=== PATIENT | male | born 1950 | race Caucasian/White ===

== ENCOUNTER → 2020-07-18 07:22 | Outpatient (CLI) | payer OTHER, SELFPAY ==
[2020-07-18 07:48] LABS: Add Manual Diff / Slide Review NO; Basophils Absolute Auto 100 /uL (0-100); Basophils Percent Auto 1.3 % (0-2); Eosinophils Absolute Auto 500 /uL (0-450); Eosinophils Percent Auto 4.7 % (2-4); Hemoglobin 16.7 g/dL (13.5-17.5); Lymphocytes Absolute Auto 2300 /uL (1100-4500); Lymphocytes Percent Auto 23.7 % (25-40); Mean Corpuscular HGB Conc 34.2 % (30-36); Mean Corpuscular Hemoglobin 29.9 PG (26-34); Mean Corpuscular Volume 87.6 fL (80-100); Monocytes Absolute Auto 900 /uL (0-900); Monocytes Percent Auto 9.5 % (3-14); Neutrophils Absolute Auto 5900 /uL (1500-7000); Neutrophils Percent Auto 60.8 % (50-75); Platelet Count 294 X10^3/uL (150-400); Red Blood Cell Count 5.59 X10^6/uL (4.5-5.9); Red Cell Distribution Width 13.4 % (11.6-14.8); White Blood Cell Count 9.6 X10^3/uL (4.5-11.0)
[2020-07-18 08:18] LABS: Alanine Aminotransferase 46 IU/L (<50); Albumin 4.4 g/dL (3.5-5.0); Albumin Globulin Ratio 1.5 (1.0-2.8); Alkaline Phosphatase 61 U/L (38-126); Aspartate Aminotransferase 42 IU/L (17-59); BUN Creatinine Ratio 19.3 (6-22); Bilirubin Total 0.8 mg/dL (0.2-1.3); Blood Urea Nitrogen 23 mg/dL (9-20); Calcium 9.6 mg/dL (8.4-10.2); Carbon Dioxide 29 mmol/L (22-32); Chloride 104 mmol/L (98-107); Cholesterol 186 mg/dL (140-199); Estimated Glomerular Filt Rate > 60.0 mL/min (>60); Glucose 108 mg/dL (80-110); HDL Cholesterol 39 mg/dL (40-60); HEMOLYSIS < 15 (0-50); LDL Cholesterol Calculated 113 mg/dL (<100); Potassium 3.7 mmol/L (3.4-5.1); Sodium 141 mmol/L (137-145); Total Protein 7.4 g/dL (6.3-8.2); Triglycerides 168 mg/dL (35-150)
[2020-07-18 08:48] LABS: Prostate Specific Antigen Scrn 2.77 ng/mL (0.1-4.0)
[2020-07-18 08:49] LABS: TSH w/ Reflex to FT4 6.48 uIU/mL (0.47-4.68)
[2020-07-18 09:19] LABS: Free T4, Direct Thyroxine 1.21 ng/dL (0.78-2.19)
== END ==
PROVIDERS: PCP Family Medicine; Referring Provider Family Medicine; Visit Provider Family Medicine
DX: I10 Essential (primary) hypertension (principal); N20.0 Calculus of kidney; Z12.11 Encounter for screening for malignant neoplasm of colon; Z12.5 Encounter for screening for malignant neoplasm of prostate; Z13.220 Encounter for screening for lipoid disorders; Z13.29 Encounter for screening for other suspected endocrine disorder
CPT/HCPCS: 36415; 80053; 80061; 84439; 84443; 85025; G0103

== ENCOUNTER → 2020-09-15 08:42 | Outpatient (CLI) | payer OTHER, SELFPAY ==
[2020-09-15 10:45] LABS: Free T3, Triiodothyronine Free 4.65 pg/mL (2.77-5.27); Free T4, Direct Thyroxine 1.56 ng/dL (0.78-2.19)
== END ==
PROVIDERS: PCP Family Medicine; Referring Provider Family Medicine; Visit Provider Family Medicine
DX: E03.9 Hypothyroidism, unspecified (principal)
CPT/HCPCS: 36415; 84439; 84443; 84481

== ENCOUNTER 2020-12-01 08:30 | Emergency (ER) | payer OTHER, SELFPAY ==
[2020-12-01 08:43] VITALS: BP 182/110; PULSE 61; RESP 16; TEMP 36.8; O2SAT 98; BMI 23.7
--- NOTE | 2020-12-01 08:51 | ED.EXTPRO ---
HPI - Extremity Problem General Chief complaint: Extremity Problem,Nontraumatic Stated complaint: left shoulder pain Time Seen by Provider: 12/01/20 08:49 Source: patient Mode of arrival: Ambulatory Limitations: no limitations History of Present Illness HPI Narrative: This is an 70-year-old male comes emergency department with complaint of left shoulder pain. Patient states he has been told he has tendinitis in the past. He has had 3 episodes. Patient does not appreciate any recent repetitive activity or injuries. He has had similar symptoms since 2018. He states that meloxicam is been helpful. For his 1st episode he took 1 tablet and resolved his symptoms for his 2nd episode it took about 5 days. He has no other followed up with Orthopedic surgery for his pain. He is in the process of moving. He states he has also been throwing a baseball with his son recently but he is right-hand dominant. He does take medication for hypertension. He denies any prior cardiac history. Denies any medications for dyslipidemia or anticoagulant. He denies any allergies to medications. He is unaware of any renal dysfunction. Patient denies any neck, back or chest pain. No shortness of breath. No numbness, tingling or weakness. Denies any other GI symptoms. Patient does live locally and is only moving a short distance today. Related Data Previous Rx's Medication Instructions Recorded lisinopril 40 mg tablet 40 mg PO DAILY #90 tab 07/20/20 amlodipine 10 mg tablet 10 mg PO DAILY #90 tab 07/24/20 chlorthalidone 25 mg tablet 25 mg PO DAILY #30 tab 07/25/20 levothyroxine 50 mcg tablet See Rx Instructions .ROUTE 11/27/20 .COMPLEX #60 tab meloxicam 7.5 mg PO BID PRN #20 tab 12/01/20 Allergies Allergy/AdvReac Type Severity Reaction Status Date / Time No Known Drug Allergies Allergy Verified 12/01/20 08:42 Review of Systems Review of Systems ROS Unobtainable: All systems reviewed & are unremarkable except as noted in HPI and below Patient History Medical History Chronic back pain (~1994) History of melanoma HTN (hypertension) (~1999) Hyperlipidemia, mixed Hypothyroidism (acquired) Kidney stones (~1997) Surgical History Anesthesia H/O hernia repair (~2005) Melanoma (~2019) Family History (Updated 07/24/20 @ 18:59 by Stephanie Wiggins) Father Cancer Hairy cell leukemia Grandfather Cancer Social History Smoking Status: Never smoker Smoking Status: Never smoker alcohol intake frequency: a few times a month Substance Use Type: does not use Exam Narrative Exam Narrative: GENERAL: Alert and oriented x three, well-nourished male in mild distress. HEENT: Head normocephalic, atraumatic, EOMI, pupils reactive, face symmetric, moist mucous membranes NECK: Supple, full range of motion, no cervical vertebral tenderness. CARDIOVASCULAR: Regular rate and rhythm without murmurs, rubs or gallops. RESPIRATORY: Breath sounds equal bilaterally, no wheezes rales or rhonchi. ABDOMEN: Soft, nontender. Normoactive bowel sounds all 4 quadrants. No guarding or rebound, rigidity, no mass EXTREMITIES: Normal range of motion the patient does have discomfort with extension and external, internal rotation, no clubbing or edema. Neurovascularly intact. Muscle strength is 5/5 with industrial manufacturing technician equal bilaterally. Patient has sensation in bilateral upper extremities with 2+ radial pulses bilaterally. Patient to to does not have any warmth, erythema or skin changes. I am not able to reproduce his discomfort but he verbalizes that over the AC joint is location of his pain. NEUROLOGICAL: Cranial nerves II through XII grossly intact. Moving all extremities SKIN: Warm, dry, no petechiae, no rashes or lesions. Initial Vital Signs Initial Vital Signs: Vital Signs Temperature 98.2 F 12/01/20 08:43 Pulse Rate 61 12/01/20 08:43 Respiratory Rate 16 12/01/20 08:43 Blood Pressure 182/110 H 12/01/20 08:43 Pulse Oximetry 98 12/01/20 08:43 Course Orders Ordered: Discontinued Medications Meloxicam (Meloxicam 7.5 Mg Tablet) 7.5 mg PO NOW ONE Stop: 12/01/20 09:03 Last Admin: 12/01/20 09:14 Dose: 7.5 mg Documented by: APRIL Vital Signs Vital signs: Vital Signs - 8 hr 12/01/20 08:43 Temperature 98.2 F Pulse Rate 61 Respiratory Rate 16 Blood Pressure 182/110 H Pulse Oximetry 98 MDM - Extremity (Nontraumatic) MDM Narrative Medical decision making narrative: This is a 70-year-old male comes emergency department with recurrent left shoulder pain that is localized to the AC joint. Patient states he has been told he had tendinitis but has not had further workup. Patient's physical exam is consistent with musculoskeletal origin. Discussed with patient and both defer any x-ray imaging as this is a chronic condition with no new findings. We did discuss new short course of NSAIDs, he can add Tylenol combination and given a referral for Orthopedic surgery for further workup and treatment. Discharge Plan Departure Patient Disposition: Home Clinical Impression: Left shoulder pain Instructions: DI for Shoulder Pain Activity Restrictions/Additional Instructions: Follow up with Orthopedic surgery. Call for an appointment. You may take Tylenol up to a 1000 mg every 8 hours as needed for pain. You may take the meloxicam every 12 hours as needed for pain. Do not take other NSAIDs such as Aleve, naproxen or ibuprofen with meloxicam. Prescription sent to [facility] in [place]. Please return for new weakness, numbness, loss of sensation, fevers, new chest pain, shortness of breath, lightheadedness or passing, new swelling, redness or other skin changes or other new or concerning symptoms. Prescriptions: New meloxicam 7.5 mg tablet 7.5 mg PO BID PRN (Reason: pain) Qty: 20 RF: 0 No Action lisinopril 40 mg tablet 40 mg PO DAILY Qty: 90 RF: 0 amlodipine 10 mg tablet 10 mg PO DAILY Qty: 90 RF: 3 levothyroxine 50 mcg tablet See Rx Instructions .ROUTE .COMPLEX Qty: 60 RF: 5 chlorthalidone 25 mg tablet 25 mg PO DAILY Qty: 30 RF: 5 Referrals: Isaiah Urban DO [Primary Care Provider] - Stand Alone Forms: Work Release Note
[2020-12-01] MEDS: MELOXICAM 7.5 MG TABLET PO (09:14)
[2020-12-01 09:28] VITALS: BP 148/84; PULSE 77; RESP 16; O2SAT 98
== END 2020-12-01 09:28 | disposition home or self-care (01) ==
PROVIDERS: Emergency Provider Emergency Medicine; PCP Family Medicine
DX: M25.512 Pain in left shoulder (principal)
CPT/HCPCS: 99283

== ENCOUNTER 2021-06-25 13:09 | Inpatient (IN) | payer MEDICARE, SELFPAY ==
[2021-06-25] VITALS (21 sets, daily range): BP systolic 141–161; BP diastolic 72–89; PULSE 60–92; RESP 10–23; TEMP 36.4–37.4; O2SAT 89–94; BMI 25.7
--- NOTE | 2021-06-25 13:21 | DI.RAD.S_ITS ---
PROCEDURE: XR CHEST 1V INDICATIONS: shortness of breath TECHNIQUE: One view of the chest was acquired. COMPARISON: None. FINDINGS: Surgical changes and devices: None. Lungs and pleura: Low lung volumes are noted. This causes a crowded appearance to the lung markings and limits evaluation. Bilateral patchy interstitial type infiltrates are seen. On this semiupright portable chest examination, no large pneumothorax or large pleural effusions are seen. At least 1 calcified granuloma can be seen. Mediastinum: Mediastinal contours appear normal. Heart size is normal. Bones and chest wall: No suspicious bony lesions. Age-appropriate bony degenerative changes are seen. Overlying soft tissues appear unremarkable. IMPRESSION: High suspicion for COVID pneumonia. Dictated by: Mark Napoles M.D. on 06/25/2021 at 12:59 Approved by: Mark Napoles M.D. on 06/25/2021 at 13:00
[2021-06-25 14:05] LABS: COVID19 - ADMIT (NP swab/PCR) POSITIVE (Negative)
[2021-06-25 14:08] LABS: Add Manual Diff / Slide Review NO; Basophils Absolute Auto 0 /uL (0-100); Basophils Percent Auto 0.5 % (0-2); Eosinophils Absolute Auto 0 /uL (0-450); Eosinophils Percent Auto 0.1 % (2-4); Hematocrit 47.6 % (41-53); Hemoglobin 16.7 g/dL (13.5-17.5); Lymphocytes Absolute Auto 800 /uL (1100-4500); Lymphocytes Percent Auto 15.1 % (25-40); Mean Corpuscular HGB Conc 35.2 % (30-36); Mean Corpuscular Hemoglobin 29.9 PG (26-34); Mean Corpuscular Volume 84.9 fL (80-100); Monocytes Absolute Auto 1000 /uL (0-900); Monocytes Percent Auto 18.7 % (3-14); Neutrophils Absolute Auto 3500 /uL (1500-7000); Neutrophils Percent Auto 65.6 % (50-75); Platelet Count 153 X10^3/uL (150-400); White Blood Cell Count 5.4 X10^3/uL (4.5-11.0)
[2021-06-25 14:19] LABS: Alanine Aminotransferase 44 IU/L (<50); Albumin 3.5 g/dL (3.5-5.0); Albumin Globulin Ratio 1.3 (1.0-2.8); Alkaline Phosphatase 46 U/L (38-126); Aspartate Aminotransferase 66 IU/L (17-59); BUN Creatinine Ratio 18.5 (6-22); Blood Urea Nitrogen 24 mg/dL (9-20); Calcium 8.7 mg/dL (8.4-10.2); Carbon Dioxide 29 mmol/L (22-32); Chloride 96 mmol/L (98-107); Estimated Glomerular Filt Rate 54.9 mL/min (>60); Globulin 2.7 g/dL (1.7-4.1); Glucose 104 mg/dL (80-110); HEMOLYSIS 23 (0-50); Potassium 3.8 mmol/L (3.4-5.1); Sodium 133 mmol/L (137-145); Total Protein 6.2 g/dL (6.3-8.2)
--- NOTE | 2021-06-25 14:25 | ED.SOB ---
HPI - SOB/Dyspnea <Celeste Luu PA-C - Last Filed: 06/25/21 19:32> General Chief Complaint: Shortness of Breath/Dyspnea Stated Complaint: weakness, short of breath, loss of balance Time Seen by Provider: 06/25/21 13:20 Source: patient Mode of arrival: Ambulatory History of Present Illness HPI Narrative: 70-year-old male with past medical history hypertension presents to the ED with 9 days of shortness of breath. Patient states that his symptoms started 9 days ago with fever, chills, worsening shortness of breath. Patient also endorses some cough, anorexia, nausea Patient states that it is hard for him to get a full breath. Patient is unvaccinated for COVID-19. Patient states that his and son were sick with a GI bug that cause some diarrhea to 2 weeks ago, son was tested negative for COVID, was not tested. He endorses that they are both recovered now. Patient denies chest pain, vomiting, abdominal pain, dysuria, lightheadedness, dizziness, syncope. Related Data Previous Rx's Medication Instructions Recorded chlorthalidone 25 mg tablet 25 mg PO DAILY #30 tab 07/25/20 meloxicam 7.5 mg tablet 7.5 mg PO BID PRN #20 tab 12/01/20 amlodipine 10 mg tablet 10 mg PO DAILY #90 tab 12/04/20 levothyroxine 50 mcg tablet See Rx Instructions .ROUTE 12/04/20 .COMPLEX #60 tab lisinopril 40 mg tablet 40 mg PO DAILY #90 tab 12/04/20 Allergies Allergy/AdvReac Type Severity Reaction Status Date / Time No Known Drug Allergies Allergy Verified 04/17/21 09:35 Review of Systems <Celeste Luu PA-C - Last Filed: 06/25/21 19:32> Constitutional Constitutional: Reports chills, Reports fatigue, Reports fever(s), Denies frequent falls, Denies lethargy and Reports weakness Eyes Eyes: Denies change in vision, Denies eye discharge, Denies irritation and Denies loss of vision ENT Ears, Nose, Mouth, and Throat: Denies change in voice, Denies dizziness, Denies neck pain, Denies sore throat and Denies throat swelling Cardiovascular Cardiovascular: Denies chest pain, Denies irregular heart rhythm, Denies lightheadedness, Denies palpitations, Reports dyspnea, Reports dyspnea on exertion and Denies orthopnea Respiratory Respiratory: Reports cough, Reports dyspnea, Reports dyspnea on exertion and Denies wheezing Gastrointestinal Gastrointestinal: Denies abdominal pain, Denies change in bowel habits, Denies diarrhea, Reports nausea and Denies vomiting Musculoskeletal Musculoskeletal: Denies neck pain and Denies numbness Integumentary/Breasts Skin/Breast: Denies pruritus, Denies erythema, Denies rash and Denies wounds Neurologic Neurologic: Denies behavioral changes, Denies confusion, Denies dizziness, Denies frequent falls, Denies loss of vision, Denies numbness and Reports weakness Psychiatric Psychiatric: Denies anxiety, Denies behavioral changes, Denies confusion, Denies depression, Denies homicidal ideation and Denies suicidal ideation Endocrine Endocrine: Reports fatigue, Denies flushing and Denies palpitations Hematologic/Lymphatic Hematologic/Lymphatic: Denies easy bruising Allergic/Immunologic Allergic/Immunologic: Denies urticaria, Denies throat swelling and Denies wheezing Patient History <Celeste Luu PA-C - Last Filed: 06/25/21 19:32> Medical History Acute pain of right knee Chronic back pain (~1994) History of melanoma HTN (hypertension) (~1999) Hyperlipidemia, mixed Hypothyroidism (acquired) Kidney stones (~1997) Somatic dysfunction of lower extremity Vaccination hesitancy by patient Surgical History Anesthesia H/O hernia repair (~2005) Melanoma (~2018) Family History Father Cancer Hairy cell leukemia Grandfather Cancer Social History Smoking Status: Never smoker Smoking Status: Never smoker alcohol intake frequency: a few times a month Substance Use Type: does not use Exam <Celeste Luu PA-C - Last Filed: 06/25/21 19:32> Initial Vital Signs Initial Vital Signs: Vital Signs Temperature 99.4 F 06/25/21 13:13 Pulse Rate 92 H 06/25/21 13:13 Respiratory Rate 18 06/25/21 13:13 Blood Pressure 141/76 H 06/25/21 13:13 Pulse Oximetry 90 L 06/25/21 13:13 Const General: cooperative [facility] Head: normocephalic and atraumatic Ears: external ears normal and TM's normal bilaterally Nose: external nose normal and No nasal discharge Face and sinus: sinuses nontender, face symmetric, no sinus tenderness and No dry mucous membranes Mouth: oral mucosae normal and moist mucous membranes Teeth and gingiva: dentition normal Throat: tonsils normal and uvula midline Eyes General: appearance normal, both eyes and all related structures Eyelids: eyelids normal Conjunctivae: conjunctivae normal Sclera: sclerae normal Pupils: PERRL EOM: EOM intact bilaterally Neck Neck: normal visual inspection, trachea midline, No lymphadenopathy, No midline deformity and No JVD Lymphatic: No lymphedema Chest Chest: normal inspection of the chest Resp Effort & Inspection: normal respiratory effort, able to speak in complete sentences, no respiratory distress and no use of accessory muscles Auscultation: clear to auscultation bilaterally Other: Patient is saturating to 90 % on room air. Able to speak in full sentences. Crackles auscultated in left lower lung regions. Patient moving air in an out with minimal effort. Cardio Rate: regular rate Rhythm: regular rhythm Heart Sounds: no click, no gallops, no murmurs and no rubs Pulses: normal peripheral pulses GI Inspection: non-distended Palpation: soft, no hepatosplenomegaly, No guarding, No pulsatile mass and No tender Auscultation: normal bowel sounds Back/Spine/Pelvis Back: No CVA tenderness Cervical Spine: cervical ROM normal and No pain with cervical ROM Thoracic/Lumbar Spine: thoracic and lumbar spine normal to inspection Skin General: no rashes or lesions noted, No jaundice and No petechiae Neuro General: patient alert, patient oriented x3, gait normal and no focal motor deficits Speech: speech normal Extrem General: full ROM, no clubbing, cyanosis or edema, no pedal edema and no calf tenderness Psych Appearance: well kempt Mental Status: mental status grossly normal Attitude: cooperative Thought Content: normal and suicidality Judgment: judgment good <Juve Winters MD - Last Filed: 06/25/21 19:36> Initial Vital Signs Initial Vital Signs: Vital Signs Temperature 99.4 F 06/25/21 13:13 Pulse Rate 92 H 06/25/21 13:13 Respiratory Rate 18 06/25/21 13:13 Blood Pressure 141/76 H 06/25/21 13:13 Pulse Oximetry 90 L 06/25/21 13:13 Course <Celeste Luu PA-C - Last Filed: 06/25/21 19:32> Course Course Narrative: Patient is COVID positive. Chest x-ray shows COVID pneumonia. Patient saturating in the mid to high 90s on 3 L of oxygen. Patient is being started on remdesivir, low-dose dexamethasone. Tylenol for fever. ABG obtained, normal. Dimer elevated, CT PE done, CT PE negative for pulmonary embolism. CT shows evidence of COVID pneumonia. Hospitalist Dr. Jung consulted, patient accepted as inpatient. Admitted to inpatient. Orders Ordered: ED Orders 06/25/21 13:21 XR chest 1V Stat EKG-12 Lead Stat Measure peak expiratory flow ONCE RT Consult Eval and Treat Now 06/25/21 13:23 COVID19 - ADMIT ([employer] swab/PCR) Stat 06/25/21 13:45 Complete Blood Count AUTO DIFF Stat Comprehensive Metabolic Panel Stat D Dimer Stat Ferritin Stat Lactate (Lactic Acid) Stat Lactate Dehydrogenase Stat NT-proBNP (BNP-Adult 18+) Stat Procalcitonin Stat Troponin I Stat 06/25/21 14:50 Blood Culture Stat 06/25/21 14:52 CT angio chest PE protocol Stat 06/25/21 15:20 ABG [Arterial Blood Gas] Stat Acetaminophen (Acetaminophen 325 Mg Tablet) 650 mg PO Q6HR PRN PRN Reason: Fever/Mild Pain (1-3) Enoxaparin Sodium (Enoxaparin 40 Mg/0.4 Ml Syringe) 40 mg SUBCUT DAILY DANA Ondansetron HCl (Ondansetron 4 Mg/2 Ml Inj) 4 mg IV Q8HR PRN PRN Reason: Nausea And Vomiting Discontinued Medications Acetaminophen (Acetaminophen 325 Mg Tablet) 975 mg PO NOW ONE Stop: 06/25/21 14:36 Last Admin: 06/25/21 14:49 Dose: 975 mg Documented by: NAY Dexamethasone (Dexamethasone 10 Mg/Ml Vial) 6 mg IV NOW ONE Stop: 06/25/21 14:26 Last Admin: 06/25/21 14:48 Dose: 6 mg Documented by: NAY Remdesivir 200 mg/ Sodium (Chloride) 250 mls @ 250 mls/hr IV NOW ONE Stop: 06/25/21 15:21 Last Infusion: 06/25/21 17:19 Dose: 0 mls/hr Documented by: Admin: 06/25/21 14:49 Dose: 250 mls/hr Documented by: NAY Sodium Chloride (Normal Saline 0.9%) 1,000 mls @ 1,000 mls/hr IV BOLUS ONE Stop: 06/25/21 15:37 Last Infusion: 06/25/21 17:19 Dose: 0 mls/hr Documented by: Admin: 06/25/21 14:49 Dose: 1,000 mls/hr Documented by: NAY Vital Signs Vital signs: Vital Signs - 8 hr 06/25/21 13:13 06/25/21 13:49 06/25/21 13:51 Temperature 99.4 F Pulse Rate 92 H 87 84 Respiratory Rate 18 Blood Pressure 141/76 H 160/86 H Pulse Oximetry 90 L 89 L 89 L 06/25/21 13:59 06/25/21 14:00 06/25/21 14:15 Temperature Pulse Rate 85 83 84 Respiratory Rate 17 23 13 Blood Pressure 161/89 H Pulse Oximetry 93 93 94 06/25/21 14:30 06/25/21 14:45 06/25/21 15:00 Temperature Pulse Rate 83 81 82 Respiratory Rate 17 15 13 Blood Pressure 145/72 H Pulse Oximetry 94 94 94 06/25/21 15:01 06/25/21 15:15 06/25/21 15:30 Temperature Pulse Rate 80 82 77 Respiratory Rate 16 13 10 L Blood Pressure 158/80 H 145/82 H Pulse Oximetry 93 93 92 06/25/21 15:51 06/25/21 16:00 06/25/21 16:15 Temperature Pulse Rate 78 74 72 Respiratory Rate 16 18 20 Blood Pressure Pulse Oximetry 94 93 93 <Juve Winters MD - Last Filed: 06/25/21 19:36> Orders Ordered: ED Orders 06/25/21 13:21 XR chest 1V Stat EKG-12 Lead Stat Measure peak expiratory flow ONCE RT Consult Eval and Treat Now 06/25/21 13:23 COVID19 - ADMIT ([employer] swab/PCR) Stat 06/25/21 13:45 Complete Blood Count AUTO DIFF Stat Comprehensive Metabolic Panel Stat D Dimer Stat Ferritin Stat Lactate (Lactic Acid) Stat Lactate Dehydrogenase Stat NT-proBNP (BNP-Adult 18+) Stat Procalcitonin Stat Troponin I Stat 06/25/21 14:50 Blood Culture Stat 06/25/21 14:52 CT angio chest PE protocol Stat 06/25/21 15:20 ABG [Arterial Blood Gas] Stat Acetaminophen (Acetaminophen 325 Mg Tablet) 650 mg PO Q6HR PRN PRN Reason: Fever/Mild Pain (1-3) Enoxaparin Sodium (Enoxaparin 40 Mg/0.4 Ml Syringe) 40 mg SUBCUT DAILY DANA Ondansetron HCl (Ondansetron 4 Mg/2 Ml Inj) 4 mg IV Q8HR PRN PRN Reason: Nausea And Vomiting Discontinued Medications Acetaminophen (Acetaminophen 325 Mg Tablet) 975 mg PO NOW ONE Stop: 06/25/21 14:36 Last Admin: 06/25/21 14:49 Dose: 975 mg Documented by: NAY Dexamethasone (Dexamethasone 10 Mg/Ml Vial) 6 mg IV NOW ONE Stop: 06/25/21 14:26 Last Admin: 06/25/21 14:48 Dose: 6 mg Documented by: NAY Remdesivir 200 mg/ Sodium (Chloride) 250 mls @ 250 mls/hr IV NOW ONE Stop: 06/25/21 15:21 Last Infusion: 06/25/21 17:19 Dose: 0 mls/hr Documented by: Admin: 06/25/21 14:49 Dose: 250 mls/hr Documented by: NAY Sodium Chloride (Normal Saline 0.9%) 1,000 mls @ 1,000 mls/hr IV BOLUS ONE Stop: 06/25/21 15:37 Last Infusion: 06/25/21 17:19 Dose: 0 mls/hr Documented by: Admin: 06/25/21 14:49 Dose: 1,000 mls/hr Documented by: NAY Vital Signs Vital signs: Vital Signs - 8 hr 06/25/21 13:13 06/25/21 13:49 06/25/21 13:51 Temperature 99.4 F Pulse Rate 92 H 87 84 Respiratory Rate 18 Blood Pressure 141/76 H 160/86 H Pulse Oximetry 90 L 89 L 89 L 06/25/21 13:59 06/25/21 14:00 06/25/21 14:15 Temperature Pulse Rate 85 83 84 Respiratory Rate 17 23 13 Blood Pressure 161/89 H Pulse Oximetry 93 93 94 06/25/21 14:30 06/25/21 14:45 06/25/21 15:00 Temperature Pulse Rate 83 81 82 Respiratory Rate 17 15 13 Blood Pressure 145/72 H Pulse Oximetry 94 94 94 06/25/21 15:01 06/25/21 15:15 06/25/21 15:30 Temperature Pulse Rate 80 82 77 Respiratory Rate 16 13 10 L Blood Pressure 158/80 H 145/82 H Pulse Oximetry 93 93 92 06/25/21 15:51 06/25/21 16:00 06/25/21 16:15 Temperature Pulse Rate 78 74 72 Respiratory Rate 16 18 20 Blood Pressure Pulse Oximetry 94 93 93 MDM - SOB/Dyspnea <Celeste Luu PA-C - Last Filed: 06/25/21 19:32> Lab Data Result diagrams: 06/25/21 13:45 06/25/21 13:45 Labs: Lab Results 06/25/21 06/25/21 06/25/21 Range/Units 13:23 13:45 13:45 WBC 5.4 (4.5-11.0) X10^3/uL RBC 5.60 (4.5-5.9) X10^6/uL Hgb 16.7 (13.5-17.5) g/dL Hct 47.6 (41-53) % MCV 84.9 (80-100) fL MCH 29.9 (26-34) PG MCHC 35.2 (30-36) % RDW 13.0 (11.6-14.8) % Plt Count 153 (150-400) X10^3/uL Neut % (Auto) 65.6 (50-75) % Lymph % (Auto) 15.1 L (25-40) % [place] % (Auto) 18.7 H (3-14) % Eos % (Auto) 0.1 L (2-4) % Baso % (Auto) 0.5 (0-2) % Neut # (Auto) 3500 (5189-7814) /uL Lymph # (Auto) 800 L (6279-8053) /uL [place] # (Auto) 1000 H (0-900) /uL Eos # (Auto) 0 (0-450) /uL Baso # (Auto) 0 (0-100) /uL D-Dimer (<230) ng/mL ABG pH (7.35-7.45) ABG pCO2 (35-45) mmHg ABG pO2 (80-100) mmHg ABG HCO3 (22-26) mmol/L ABG Total CO2 (21-31) mmol/L ABG O2 Saturation (95-100) % ABG Base Excess (-2-2) mmol/L FiO2 Sodium 133 L (137-145) mmol/L Potassium 3.8 (3.4-5.1) mmol/L Chloride 96 L (98-107) mmol/L Carbon Dioxide 29 (22-32) mmol/L BUN 24 H (9-20) mg/dL Creatinine 1.30 H (0.66-1.25) mg/dL Estimated GFR 54.9 L (>60) mL/min BUN/Creatinine Ratio 18.5 (6-22) Glucose 104 (80-110) mg/dL Lactate (0.7-2.1) mmol/L Calcium 8.7 (8.4-10.2) mg/dL Ferritin (18-464) ng/mL Total Bilirubin 1.0 (0.2-1.3) mg/dL AST 66 H (17-59) IU/L ALT 44 (<50) IU/L Alkaline Phosphatase 46 (38-126) U/L Lactate Dehydrogenase (313-618) U/L Troponin I (0.01-0.034) ng/mL NT-Pro-B Natriuret Pep (<125) pg/mL Total Protein 6.2 L (6.3-8.2) g/dL Albumin 3.5 (3.5-5.0) g/dL Globulin 2.7 (1.7-4.1) g/dL Albumin/Globulin Ratio 1.3 (1.0-2.8) Procalcitonin (<0.5) ng/mL SARS-CoV-2 (PCR) Positive H (Negative) 06/25/21 06/25/21 06/25/21 Range/Units 13:45 13:45 13:45 WBC (4.5-11.0) X10^3/uL RBC (4.5-5.9) X10^6/uL Hgb (13.5-17.5) g/dL Hct (41-53) % MCV (80-100) fL MCH (26-34) PG MCHC (30-36) % RDW (11.6-14.8) % Plt Count (150-400) X10^3/uL Neut % (Auto) (50-75) % Lymph % (Auto) (25-40) % [place] % (Auto) (3-14) % Eos % (Auto) (2-4) % Baso % (Auto) (0-2) % Neut # (Auto) (0108-6549) /uL Lymph # (Auto) (8844-3073) /uL [place] # (Auto) (0-900) /uL Eos # (Auto) (0-450) /uL Baso # (Auto) (0-100) /uL D-Dimer 571 H (<230) ng/mL ABG pH (7.35-7.45) ABG pCO2 (35-45) mmHg ABG pO2 (80-100) mmHg ABG HCO3 (22-26) mmol/L ABG Total CO2 (21-31) mmol/L ABG O2 Saturation (95-100) % ABG Base Excess (-2-2) mmol/L FiO2 Sodium (137-145) mmol/L Potassium (3.4-5.1) mmol/L Chloride (98-107) mmol/L Carbon Dioxide (22-32) mmol/L BUN (9-20) mg/dL Creatinine (0.66-1.25) mg/dL Estimated GFR (>60) mL/min BUN/Creatinine Ratio (6-22) Glucose (80-110) mg/dL Lactate 1.0 (0.7-2.1) mmol/L Calcium (8.4-10.2) mg/dL Ferritin (18-464) ng/mL Total Bilirubin (0.2-1.3) mg/dL AST (17-59) IU/L ALT (<50) IU/L Alkaline Phosphatase (38-126) U/L Lactate Dehydrogenase (313-618) U/L Troponin I 0.028 (0.01-0.034) ng/mL NT-Pro-B Natriuret Pep 191 H (<125) pg/mL Total Protein (6.3-8.2) g/dL Albumin (3.5-5.0) g/dL Globulin (1.7-4.1) g/dL Albumin/Globulin Ratio (1.0-2.8) Procalcitonin (<0.5) ng/mL SARS-CoV-2 (PCR) (Negative) 06/25/21 06/25/21 06/25/21 Range/Units 13:45 13:45 15:20 WBC (4.5-11.0) X10^3/uL RBC (4.5-5.9) X10^6/uL Hgb (13.5-17.5) g/dL Hct (41-53) % MCV (80-100) fL MCH (26-34) PG MCHC (30-36) % RDW (11.6-14.8) % Plt Count (150-400) X10^3/uL Neut % (Auto) (50-75) % Lymph % (Auto) (25-40) % [place] % (Auto) (3-14) % Eos % (Auto) (2-4) % Baso % (Auto) (0-2) % Neut # (Auto) (9130-0973) /uL Lymph # (Auto) (5158-6845) /uL [place] # (Auto) (0-900) /uL Eos # (Auto) (0-450) /uL Baso # (Auto) (0-100) /uL D-Dimer (<230) ng/mL ABG pH 7.51 H (7.35-7.45) ABG pCO2 32.4 L (35-45) mmHg ABG pO2 74 L (80-100) mmHg ABG HCO3 26 (22-26) mmol/L ABG Total CO2 27 (21-31) mmol/L ABG O2 Saturation 96 (95-100) % ABG Base Excess 3.0 H (-2-2) mmol/L FiO2 32 Sodium (137-145) mmol/L Potassium (3.4-5.1) mmol/L Chloride (98-107) mmol/L Carbon Dioxide (22-32) mmol/L BUN (9-20) mg/dL Creatinine (0.66-1.25) mg/dL Estimated GFR (>60) mL/min BUN/Creatinine Ratio (6-22) Glucose (80-110) mg/dL Lactate (0.7-2.1) mmol/L Calcium (8.4-10.2) mg/dL Ferritin 946 H (18-464) ng/mL Total Bilirubin (0.2-1.3) mg/dL AST (17-59) IU/L ALT (<50) IU/L Alkaline Phosphatase (38-126) U/L Lactate Dehydrogenase 1142 H (313-618) U/L Troponin I (0.01-0.034) ng/mL NT-Pro-B Natriuret Pep (<125) pg/mL Total Protein (6.3-8.2) g/dL Albumin (3.5-5.0) g/dL Globulin (1.7-4.1) g/dL Albumin/Globulin Ratio (1.0-2.8) Procalcitonin 0.15 (<0.5) ng/mL SARS-CoV-2 (PCR) (Negative) MDM Narrative Medical decision making narrative: 70-year-old male with past medical history hypertension presents to the ED with 9 days of shortness of breath. Concern for COVID-19 infection versus pneumonia versus URI versus CHF versus ACS versus PE. Will order labs, troponin, BNP, chest x-ray, EKG, COVID-19 test, D-dimer. Will put patient on 3 L of oxygen via nasal cannula. Will reassess. <Juve Winters MD - Last Filed: 06/25/21 19:36> Lab Data Labs: Lab Results 06/25/21 06/25/21 06/25/21 Range/Units 13:23 13:45 13:45 WBC 5.4 (4.5-11.0) X10^3/uL RBC 5.60 (4.5-5.9) X10^6/uL Hgb 16.7 (13.5-17.5) g/dL Hct 47.6 (41-53) % MCV 84.9 (80-100) fL MCH 29.9 (26-34) PG MCHC 35.2 (30-36) % RDW 13.0 (11.6-14.8) % Plt Count 153 (150-400) X10^3/uL Neut % (Auto) 65.6 (50-75) % Lymph % (Auto) 15.1 L (25-40) % [place] % (Auto) 18.7 H (3-14) % Eos % (Auto) 0.1 L (2-4) % Baso % (Auto) 0.5 (0-2) % Neut # (Auto) 3500 (1298-0546) /uL Lymph # (Auto) 800 L (2747-2631) /uL [place] # (Auto) 1000 H (0-900) /uL Eos # (Auto) 0 (0-450) /uL Baso # (Auto) 0 (0-100) /uL D-Dimer (<230) ng/mL ABG pH (7.35-7.45) ABG pCO2 (35-45) mmHg ABG pO2 (80-100) mmHg ABG HCO3 (22-26) mmol/L ABG Total CO2 (21-31) mmol/L ABG O2 Saturation (95-100) % ABG Base Excess (-2-2) mmol/L FiO2 Sodium 133 L (137-145) mmol/L Potassium 3.8 (3.4-5.1) mmol/L Chloride 96 L (98-107) mmol/L Carbon Dioxide 29 (22-32) mmol/L BUN 24 H (9-20) mg/dL Creatinine 1.30 H (0.66-1.25) mg/dL Estimated GFR 54.9 L (>60) mL/min BUN/Creatinine Ratio 18.5 (6-22) Glucose 104 (80-110) mg/dL Lactate (0.7-2.1) mmol/L Calcium 8.7 (8.4-10.2) mg/dL Ferritin (18-464) ng/mL Total Bilirubin 1.0 (0.2-1.3) mg/dL AST 66 H (17-59) IU/L ALT 44 (<50) IU/L Alkaline Phosphatase 46 (38-126) U/L Lactate Dehydrogenase (313-618) U/L Troponin I (0.01-0.034) ng/mL NT-Pro-B Natriuret Pep (<125) pg/mL Total Protein 6.2 L (6.3-8.2) g/dL Albumin 3.5 (3.5-5.0) g/dL Globulin 2.7 (1.7-4.1) g/dL Albumin/Globulin Ratio 1.3 (1.0-2.8) Procalcitonin (<0.5) ng/mL SARS-CoV-2 (PCR) Positive H (Negative) 06/25/21 06/25/21 06/25/21 Range/Units 13:45 13:45 13:45 WBC (4.5-11.0) X10^3/uL RBC (4.5-5.9) X10^6/uL Hgb (13.5-17.5) g/dL Hct (41-53) % MCV (80-100) fL MCH (26-34) PG MCHC (30-36) % RDW (11.6-14.8) % Plt Count (150-400) X10^3/uL Neut % (Auto) (50-75) % Lymph % (Auto) (25-40) % [place] % (Auto) (3-14) % Eos % (Auto) (2-4) % Baso % (Auto) (0-2) % Neut # (Auto) (2743-0560) /uL Lymph # (Auto) (6195-4282) /uL [place] # (Auto) (0-900) /uL Eos # (Auto) (0-450) /uL Baso # (Auto) (0-100) /uL D-Dimer 571 H (<230) ng/mL ABG pH (7.35-7.45) ABG pCO2 (35-45) mmHg ABG pO2 (80-100) mmHg ABG HCO3 (22-26) mmol/L ABG Total CO2 (21-31) mmol/L ABG O2 Saturation (95-100) % ABG Base Excess (-2-2) mmol/L FiO2 Sodium (137-145) mmol/L Potassium (3.4-5.1) mmol/L Chloride (98-107) mmol/L Carbon Dioxide (22-32) mmol/L BUN (9-20) mg/dL Creatinine (0.66-1.25) mg/dL Estimated GFR (>60) mL/min BUN/Creatinine Ratio (6-22) Glucose (80-110) mg/dL Lactate 1.0 (0.7-2.1) mmol/L Calcium (8.4-10.2) mg/dL Ferritin (18-464) ng/mL Total Bilirubin (0.2-1.3) mg/dL AST (17-59) IU/L ALT (<50) IU/L Alkaline Phosphatase (38-126) U/L Lactate Dehydrogenase (313-618) U/L Troponin I 0.028 (0.01-0.034) ng/mL NT-Pro-B Natriuret Pep 191 H (<125) pg/mL Total Protein (6.3-8.2) g/dL Albumin (3.5-5.0) g/dL Globulin (1.7-4.1) g/dL Albumin/Globulin Ratio (1.0-2.8) Procalcitonin (<0.5) ng/mL SARS-CoV-2 (PCR) (Negative) 06/25/21 06/25/21 06/25/21 Range/Units 13:45 13:45 15:20 WBC (4.5-11.0) X10^3/uL RBC (4.5-5.9) X10^6/uL Hgb (13.5-17.5) g/dL Hct (41-53) % MCV (80-100) fL MCH (26-34) PG MCHC (30-36) % RDW (11.6-14.8) % Plt Count (150-400) X10^3/uL Neut % (Auto) (50-75) % Lymph % (Auto) (25-40) % [place] % (Auto) (3-14) % Eos % (Auto) (2-4) % Baso % (Auto) (0-2) % Neut # (Auto) (3486-8365) /uL Lymph # (Auto) (4829-8322) /uL [place] # (Auto) (0-900) /uL Eos # (Auto) (0-450) /uL Baso # (Auto) (0-100) /uL D-Dimer (<230) ng/mL ABG pH 7.51 H (7.35-7.45) ABG pCO2 32.4 L (35-45) mmHg ABG pO2 74 L (80-100) mmHg ABG HCO3 26 (22-26) mmol/L ABG Total CO2 27 (21-31) mmol/L ABG O2 Saturation 96 (95-100) % ABG Base Excess 3.0 H (-2-2) mmol/L FiO2 32 Sodium (137-145) mmol/L Potassium (3.4-5.1) mmol/L Chloride (98-107) mmol/L Carbon Dioxide (22-32) mmol/L BUN (9-20) mg/dL Creatinine (0.66-1.25) mg/dL Estimated GFR (>60) mL/min BUN/Creatinine Ratio (6-22) Glucose (80-110) mg/dL Lactate (0.7-2.1) mmol/L Calcium (8.4-10.2) mg/dL Ferritin 946 H (18-464) ng/mL Total Bilirubin (0.2-1.3) mg/dL AST (17-59) IU/L ALT (<50) IU/L Alkaline Phosphatase (38-126) U/L Lactate Dehydrogenase 1142 H (313-618) U/L Troponin I (0.01-0.034) ng/mL NT-Pro-B Natriuret Pep (<125) pg/mL Total Protein (6.3-8.2) g/dL Albumin (3.5-5.0) g/dL Globulin (1.7-4.1) g/dL Albumin/Globulin Ratio (1.0-2.8) Procalcitonin 0.15 (<0.5) ng/mL SARS-CoV-2 (PCR) (Negative) Discharge Plan Departure Patient Disposition: Admitted As Inpatient Clinical Impression: COVID-19 Admit Date/Time: 06/25/21 16:23 Admit Provider: Richy Jung
[2021-06-25 14:42] LABS: D Dimer 571 ng/mL (<230)
[2021-06-25 14:44] LABS: Lactate Dehydrogenase 1142 U/L (313-618)
[2021-06-25] MEDS: DEXAMETHASONE 10 MG/ML VIAL 6 MG IV (14:48)
[2021-06-25] MEDS: SODIUM CHLORIDE 0.9% 1,000 ML 1000 ML IV (14:49)
[2021-06-25] MEDS: ACETAMINOPHEN 325 MG TABLET 975 MG PO (14:49)
[2021-06-25] MEDS: REMDESIVIR 200 MG in SODIUM CHLORIDE 0.9% 210 ML 250 ML IV (14:49)
[2021-06-25 14:50] LABS: HCO3 ABG 26 mmol/L (22-26); Oxygen Saturation ABG 96 % (95-100); PCO2 ABG 32.4 mmHg (35-45); PO2 ABG 74 mmHg (80-100); TCO2 ABG 27 mmol/L (21-31); pH ABG 7.51 (7.35-7.45)
[2021-06-25 14:51] LABS: Fractionated Inspired Oxygen 32
--- NOTE | 2021-06-25 14:52 | DI.CT.S_ITS ---
PROCEDURE: CT ANGIO CHEST PE PROTOCOL INDICATIONS: [facility] d-dimer, SOB, Covid + TECHNIQUE: After the administration of intravenous contrast, 2 mm thick sections acquired from the pulmonary apices to the posterior costophrenic angles. 3-dimensional maximum intensity projection (MIP) coronal and sagittal reformats were then acquired through the thorax. For radiation dose reduction, the following was used: automated exposure control, adjustment of mA and/or kV according to patient size. COMPARISON: None. FINDINGS: Image quality: Excellent. Pulmonary arteries: Pulmonary arteries are normal in size, and demonstrate no intraluminal filling defects to suggest central pulmonary embolism. Lungs and pleura: Extensive geographic pattern of ground-glass opacities and interstitial infiltrates and more confluent airspace consolidation, highly suspicious for Covid 19 pneumonia. No pleural effusions or pneumothorax. Central and peripheral airways are patent. Mediastinum: Heart size is normal, without pericardial effusion. Shotty diffuse mediastinal adenopathy, including bilateral hilar adenopathy, subcarinal adenopathy, precarinal adenopathy, pre-vascular adenopathy, and right paratracheal adenopathy. Thoracic aorta is normal in caliber and enhancement. Esophagus is normal in caliber, without hiatal hernia. Bones and chest wall: No suspicious bony lesions. Ribs and thoracic spine appear intact throughout. Thyroid gland is unremarkable. No axillary or supraclavicular adenopathy. Abdomen: Visualized upper abdominal solid organs appear normal in the early arterial phase of enhancement. IMPRESSION: 1. No evidence acute pulmonary emboli. 2. Extensive pulmonary infiltrates are highly consistent with Covid 19 pneumonia. 3. At least moderate coronary artery calcifications. 4. Extensive mediastinal lymph nodes may potentially all be reactive. However, consider follow-up imaging in 4-6 months to document stability or improvement in lymph nodes. Dictated by: Fernando Larose M.D. on 06/25/2021 at 16:00 Approved by: Fernando Larose M.D. on 06/25/2021 at 16:03
[2021-06-25 15:02] LABS: Procalcitonin 0.15 ng/mL (<0.5)
[2021-06-25 15:09] LABS: NT-proBNP (BNP-Adult 18+) 191 pg/mL (<125); Troponin I 0.028 ng/mL (0.01-0.034)
[2021-06-25 15:21] LABS: Ferritin 946 ng/mL (18-464)
--- NOTE | 2021-06-25 15:49 | PC.NURSE ---
Rash to chest and back.
--- NOTE | 2021-06-25 17:55 | PM.HP.1 ---
History of Present Illness History of Present Illness Date Patient Seen: 06/25/21 Time Patient Seen: 17:00 Chief complaint: weakness, short of breath, loss of balance Narrative: Mr. Sutton is a 70M with PMH HTN, HL, unvaccinated against COVID who presents to the hospital after 9 days of feeling ill. He notes initially that he felt fever, chills, nausea, poor appetite. This progressed over the last few days to cough and shortness of breath. He is not vaccinated for COVID. Because of his worsening shortness of breath he presented to the hospital. He denied chest pain, vomiting, abdominal pain, nausea, vomiting, or diarrhea. In the ED workup was done he was noted to be afebrile, hr in the 90s, O2 sat at 90, dropped to 89 when I stopped his oxygen. Labs notable for WBC 5.4, hgb 16.7, plts 153. Na 133, k 3.8, bun 24, creatinine 1.30. LDH 1142. Procal 0.15, COVID positive. Chest xray showed bilateral patchy infiltrates. CTA showed no PE. He was ordered for remdesivir, dexamethasone and admitted for further treatment. Patient History Medical History Acute pain of right knee Chronic back pain (~1994) History of melanoma HTN (hypertension) (~1999) Hyperlipidemia, mixed Hypothyroidism (acquired) Kidney stones (~1997) Somatic dysfunction of lower extremity Vaccination hesitancy by patient Surgical History Anesthesia H/O hernia repair (~2005) Melanoma (~2018) Family & Social History Family History Father Cancer Hairy cell leukemia Grandfather Cancer Tobacco & Substance use: Smoking Status Never smoker alcohol intake frequency a few times a month Substance Use Type does not use Meds Home Medications and Allergies Home Medications Medication Instructions Recorded Confirmed Type chlorthalidone 25 mg tablet 25 mg PO DAILY #30 tab 07/25/20 04/17/21 Rx meloxicam 7.5 mg tablet 7.5 mg PO BID PRN #20 tab 12/01/20 04/17/21 Rx amlodipine 10 mg tablet 10 mg PO DAILY #90 tab 12/04/20 04/17/21 Rx levothyroxine 50 mcg tablet See Rx Instructions .ROUTE 12/04/20 04/17/21 Rx .COMPLEX #60 tab lisinopril 40 mg tablet 40 mg PO DAILY #90 tab 12/04/20 04/17/21 Rx Allergies Allergy/AdvReac Type Severity Reaction Status Date / Time No Known Drug Allergies Allergy Verified 04/17/21 09:35 Review of Systems Review of Systems Narrative: 14 systems reviewed and negative aside from what is noted in HPI Exam Vital Signs (past 8 hours): - 06/25/21 13:13 06/25/21 13:49 06/25/21 13:51 Temperature 99.4 F Pulse Rate 92 H 87 84 Respiratory Rate 18 Blood Pressure 141/76 H 160/86 H Pulse Oximetry 90 L 89 L 89 L 06/25/21 13:59 06/25/21 14:00 06/25/21 14:15 Temperature Pulse Rate 85 83 84 Respiratory Rate 17 23 13 Blood Pressure 161/89 H Pulse Oximetry 93 93 94 06/25/21 14:30 06/25/21 14:45 06/25/21 15:00 Temperature Pulse Rate 83 81 82 Respiratory Rate 17 15 13 Blood Pressure 145/72 H Pulse Oximetry 94 94 94 06/25/21 15:01 06/25/21 15:15 06/25/21 15:30 Temperature Pulse Rate 80 82 77 Respiratory Rate 16 13 10 L Blood Pressure 158/80 H 145/82 H Pulse Oximetry 93 93 92 06/25/21 15:51 06/25/21 16:00 06/25/21 16:15 Temperature Pulse Rate 78 74 72 Respiratory Rate 16 18 20 Blood Pressure Pulse Oximetry 94 93 93 06/25/21 16:30 06/25/21 16:45 06/25/21 17:15 Temperature Pulse Rate 73 71 68 Respiratory Rate 12 12 21 Blood Pressure Pulse Oximetry 93 92 90 L Oxygen Delivery Method Nasal Cannula Oxygen Flow Rate 3 Narrative Exam Narrative: GEN: no acute distress HEENT: moist mucous membranes, PERRL NECK: trachea midline, no JVD CV: regular rate and rhythm, no murmurs PULM: poor air movement bilaterally ABD: soft, nontender, nondistended, no organomegaly, normal bowel sounds EXT: warm and well perfused, no edema NEURO: awake, alert, oriented, no focal deficits Objective Labs Result Diagrams: 06/25/21 13:45 06/25/21 13:45 Labs: Laboratory Results - last 24 hr 06/25/21 06/25/21 06/25/21 13:23 13:45 13:45 WBC 5.4 RBC 5.60 Hgb 16.7 Hct 47.6 MCV 84.9 MCH 29.9 MCHC 35.2 RDW 13.0 Plt Count 153 Neut % (Auto) 65.6 Lymph % (Auto) 15.1 L [place] % (Auto) 18.7 H Eos % (Auto) 0.1 L Baso % (Auto) 0.5 Neut # (Auto) 3500 Lymph # (Auto) 800 L [place] # (Auto) 1000 H Eos # (Auto) 0 Baso # (Auto) 0 D-Dimer ABG pH ABG pCO2 ABG pO2 ABG HCO3 ABG Total CO2 ABG O2 Saturation ABG Base Excess FiO2 Sodium 133 L Potassium 3.8 Chloride 96 L Carbon Dioxide 29 BUN 24 H Creatinine 1.30 H Estimated GFR 54.9 L BUN/Creatinine Ratio 18.5 Glucose 104 Lactate Calcium 8.7 Ferritin Total Bilirubin 1.0 AST 66 H ALT 44 Alkaline Phosphatase 46 Lactate Dehydrogenase Troponin I NT-Pro-B Natriuret Pep Total Protein 6.2 L Albumin 3.5 Globulin 2.7 Albumin/Globulin Ratio 1.3 Procalcitonin SARS-CoV-2 (PCR) Positive H 06/25/21 06/25/21 06/25/21 13:45 13:45 13:45 WBC RBC Hgb Hct MCV MCH MCHC RDW Plt Count Neut % (Auto) Lymph % (Auto) [place] % (Auto) Eos % (Auto) Baso % (Auto) Neut # (Auto) Lymph # (Auto) [place] # (Auto) Eos # (Auto) Baso # (Auto) D-Dimer 571 H ABG pH ABG pCO2 ABG pO2 ABG HCO3 ABG Total CO2 ABG O2 Saturation ABG Base Excess FiO2 Sodium Potassium Chloride Carbon Dioxide BUN Creatinine Estimated GFR BUN/Creatinine Ratio Glucose Lactate 1.0 Calcium Ferritin Total Bilirubin AST ALT Alkaline Phosphatase Lactate Dehydrogenase Troponin I 0.028 NT-Pro-B Natriuret Pep 191 H Total Protein Albumin Globulin Albumin/Globulin Ratio Procalcitonin SARS-CoV-2 (PCR) 11/09/21 11/09/21 11/09/21 13:45 13:45 15:20 WBC RBC Hgb Hct MCV MCH MCHC RDW Plt Count Neut % (Auto) Lymph % (Auto) [place] % (Auto) Eos % (Auto) Baso % (Auto) Neut # (Auto) Lymph # (Auto) [place] # (Auto) Eos # (Auto) Baso # (Auto) D-Dimer ABG pH 7.51 H ABG pCO2 32.4 L ABG pO2 74 L ABG HCO3 26 ABG Total CO2 27 ABG O2 Saturation 96 ABG Base Excess 3.0 H FiO2 32 Sodium Potassium Chloride Carbon Dioxide BUN Creatinine Estimated GFR BUN/Creatinine Ratio Glucose Lactate Calcium Ferritin 946 H Total Bilirubin AST ALT Alkaline Phosphatase Lactate Dehydrogenase 1142 H Troponin I NT-Pro-B Natriuret Pep Total Protein Albumin Globulin Albumin/Globulin Ratio Procalcitonin 0.15 SARS-CoV-2 (PCR) Assessment & Plan Assessment & Plan narrative: Mr. Sutton is a 70M with PMH HTN who presents with shortness of breath found to have hypoxemic respiratory failure due to COVID pneumonia. 1. Acute hypoxemic respiratory failure secondary to COVID pneumonia -patient is unvaccinated -desat to 89% on room air in ED -oxygen to maintain sat >93% -start remdesivir and dexamethasone -monitor renal function closely -encourage proning 2. Elevated creatinine -creatinine 1.3 on admission, was 1.19 at baseline -trend daily 3. Hypertension -hold medications for tonight -likely restart tomorrow 4. Hypothyroidism -continue synthroid CODE: Full Proxy: Charo Flavio, spouse I have utilized all available immediate resources to obtain, update, or review the patient's current medications. Time Spent With Patient Critical Care time: I spent a total of [] minutes of critical care time on this patient's care today; this time is exclusive of procedural time. Quality MIPS - Admit I confirm the patient?s Advance Care Plan is present, Code status is documented, Surrogate decision maker is in patient?s record [If Yes, STOP here]: Yes
--- NOTE | 2021-06-25 19:57 | PC.NURSE ---
Patient brought from ER to room 211, VSS, on 3L NC at 92%. Patient states he is feeling better than when he first arrived. Oriented to room and call light. Call light placed within reach, and instructed to call for assistance and not to get up alone. Patient denies fall. Endorses poor appetite, and states he has had a metalic taste in his mouth for a several days. Float Rn plans to assist with admission process. Patient denies needs at this time, laying in bed comfortably. Scattered dry red rash noted to upper chest, sides and onto back. Patient is not sure when this started but states he does notice it is itchy.
[2021-06-26] VITALS (9 sets, daily range): BP systolic 133–148; BP diastolic 73–94; PULSE 56–75; RESP 16–18; TEMP 35.7–36.9; O2SAT 90–94
[2021-06-26 06:49] LABS: Hematocrit 48.8 % (41-53); Hemoglobin 17.1 g/dL (13.5-17.5); Mean Corpuscular Hemoglobin 29.6 PG (26-34); Mean Corpuscular Volume 84.6 fL (80-100); Platelet Count 164 X10^3/uL (150-400); Red Blood Cell Count 5.77 X10^6/uL (4.5-5.9); Red Cell Distribution Width 13.4 % (11.6-14.8); White Blood Cell Count 3.6 X10^3/uL (4.5-11.0)
[2021-06-26 06:51] LABS: Add Manual Diff / Slide Review YES
[2021-06-26 06:55] LABS: BUN Creatinine Ratio 24.1 (6-22); Blood Urea Nitrogen 28 mg/dL (9-20); Calcium 8.8 mg/dL (8.4-10.2); Carbon Dioxide 31 mmol/L (22-32); Chloride 98 mmol/L (98-107); Estimated Glomerular Filt Rate > 60.0 mL/min (>60); Glucose 131 mg/dL (80-110); HEMOLYSIS < 15 (0-50); Potassium 3.5 mmol/L (3.4-5.1); Sodium 138 mmol/L (137-145)
[2021-06-26 07:42] LABS: Neutrophils Absolute Manual 2376 /uL (3000-5900); Total Cells Counted 100
[2021-06-26 07:43] LABS: RBC Morphology Normal Morphology
[2021-06-26] MEDS: ENOXAPARIN 40 MG/0.4 ML SYRINGE SUBCUT (10:00)
--- NOTE | 2021-06-26 12:39 | CM.DANOTE ---
Patient is a 70 yo male who was admitted on 06/25/21 for Weakness/SOB. Pt has [facility] MCR for insurance and his PCP is Dr. Isaiah Urban. EMR was reviewed. Per MD, pt unvaccinated and admitted for COVID+ pneumonia and hypoxic resp failure. Pt currently on 3LO2. Per PCP, pt had concerns with clotting risk with COVID vaccine but was encouraged to get the vaccine pending records from previous ablation at another facility. Therefore pt remains currently unvaccinated. SW called pt's room phone due to COVID+ precautions and explained role and pt confirms he resides at home in [place] with his spouse and is active and independent at baseline. Pt drives and does not use DME for ambulation. Pt states his spouse does not seem to be showing any symptoms of COVID and is available for transport and assist at d/c. SW inquired if they have other local family or friends who could assist with shopping/meals at d/c due to pt's COVID status but states they do not have any but that they have been managing quite well with ordering food and groceries prior to pt's admission while he knew he was COVID+. Pt does not anticipate any needs at d/c. Pt denies any hx of HH or SNF and preference is home with spouse when stable. Pt states he already feels much better than on admission. Plan: SW to follow for pt's oxygen needs/sats while ambulating towards plan of home with spouse when stable and any further identified discharge planning needs. ANGEL Abreu Discharge Planning/Care Management CM Discharge Assessment Start: 06/26/21 12:33 Freq: Status: Active Protocol: Document 06/26/21 12:33 BF (Rec: 06/26/21 12:39 BF [id number]) Discharge Planning Assessment Assigned Plastics Nurse ANGEL Manzano DPOA/Assigned Designee Name spouse Charo Contact Information [phone] Advance Directives? No Advance Directives on File No History Provided By Patient,Medical Record Has Patient been admitted in last 30 No days? Prior Living Arrangements House Household Members spouse,children Type of transporation used prior to Drives own vehicle admit Independent with ADL's Yes Is patient alert and oriented? Yes Caregiver for Another No Barriers to Discharge No Discharge Plan Home Transportation Arrangement Spouse can transport at d/c Referrals Initiated None needed Additional Comment Pending pt's oxygen needs, possible home O2 Review Status In Process Please Provide Date Initial DC 06/26/21 Assessment Was Performed Next Review Type Continued Stay Review
[2021-06-26] MEDS: REMDESIVIR 100 MG in SODIUM CHLORIDE 0.9% 230 ML 250 ML IV (17:00)
--- NOTE | 2021-06-26 17:14 | P.PN_ITS ---
Subjective Subjective Date Patient Seen: 06/26/21 Time Patient Seen: 08:00 Interval history: Today he said he was feeling much improved. He was able to wean down to 2L oxygen at rest with sats in low 90s. Attempted to ambulate and patient became winded and lightheaded and need 6L o2 and still in high 80s. Exam Vital Signs (past 8 hours): - 06/26/21 11:00 06/26/21 11:59 06/26/21 15:00 Temperature 98.5 F Pulse Rate 75 Respiratory Rate 16 Blood Pressure 144/94 H Pulse Oximetry 93 90 L 91 Oxygen Delivery Method Nasal Cannula Oxygen Flow Rate 3 Narrative Exam Narrative: GEN: no acute distress HEENT: moist mucous membranes, PERRL NECK: trachea midline, no JVD CV: regular rate and rhythm, no murmurs PULM: poor air movement bilaterally ABD: soft, nontender, nondistended, no organomegaly, normal bowel sounds EXT: warm and well perfused, no edema NEURO: awake, alert, oriented, no focal deficits Objective Labs Result Diagrams: 06/26/21 06:20 06/26/21 06:20 Labs: Laboratory Results - last 24 hr 06/26/21 06/26/21 06:20 06:20 WBC 3.6 L RBC 5.77 Hgb 17.1 Hct 48.8 MCV 84.6 MCH 29.6 MCHC 35.0 RDW 13.4 Plt Count 164 Neut % (Auto) Not Reportable Lymph % (Auto) Not Reportable [place] % (Auto) Not Reportable Eos % (Auto) Not Reportable Baso % (Auto) Not Reportable Lymph # (Auto) Not Reportable [place] # (Auto) Not Reportable Baso # (Auto) Not Reportable Total Counted 100 Seg Neutrophils % 63.0 Band Neutrophils % 3.0 Lymphocytes % (Manual) 15.0 L Atypical Lymphs % 2.0 H Monocytes % (Manual) 17.0 H Neutrophils # (Manual) 2376 L Plt Morphology Comment RBC Morphology Normal morphology Sodium 138 Potassium 3.5 Chloride 98 Carbon Dioxide 31 BUN 28 H Creatinine 1.16 Estimated GFR > 60.0 BUN/Creatinine Ratio 24.1 H Glucose 131 H Calcium 8.8 PFSH Medical History Acute pain of right knee Chronic back pain (~1994) History of melanoma HTN (hypertension) (~1999) Hyperlipidemia, mixed Hypothyroidism (acquired) Kidney stones (~1997) Somatic dysfunction of lower extremity Vaccination hesitancy by patient Surgical History Anesthesia H/O hernia repair (~2005) Melanoma (~2018) Family History Father Cancer Hairy cell leukemia Grandfather Cancer Social History household members: spouse and children Smoking Status: Never smoker alcohol intake: current Assessment & Plan Assessment & Plan narrative: Mr. Sutton is a 70M with PMH HTN who presents with shortness of breath found to have hypoxemic respiratory failure due to COVID pneumonia. 1. Acute hypoxemic respiratory failure secondary to COVID pneumonia -patient is unvaccinated -desat to 89% on room air in ED -oxygen to maintain sat >93% -start remdesivir and dexamethasone -monitor renal function closely -encourage proning 2. Elevated creatinine, improved -creatinine 1.3 on admission, now improved to 1.16, was 1.19 at baseline -trend daily 3. Hypertension -hold medications for tonight -likely restart tomorrow 4. Hypothyroidism -continue synthroid CODE: Full Proxy: Charo Flavio, spouse I have utilized all available immediate resources to obtain, update, or review the patient's current medications. Time Spent With Patient Critical Care time: I spent a total of [] minutes of critical care time on this patient's care today; this time is exclusive of procedural time. Quality VTE Deep Vein Thrombosis/Pulmonary Embolism Present on Admission: No
[2021-06-27 05:00] VITALS: BP 146/82; PULSE 95; RESP 18; TEMP 38.6; O2SAT 92
[2021-06-27 06:20] VITALS: TEMP 37.7
[2021-06-27 07:00] VITALS: O2SAT 92
[2021-06-27 08:55] VITALS: BP 161/79; PULSE 89; RESP 16; O2SAT 89
[2021-06-27] MEDS: ENOXAPARIN 40 MG/0.4 ML SYRINGE SUBCUT (09:55)
[2021-06-27] MEDS: ACETAMINOPHEN 325 MG TABLET 650 MG PO (09:56)
[2021-06-27] MEDS: AMLODIPINE 5 MG TABLET 10 MG PO (09:56)
[2021-06-27] MEDS: DEXAMETHASONE 10 MG/ML VIAL 6 MG IV (09:56)
--- NOTE | 2021-06-27 14:05 | PM.DS.1 ---
History of Present Illness History of Present Illness Date Patient Seen: 06/27/21 Time Patient Seen: 14:05 Chief complaint: weakness, short of breath, loss of balance Narrative: Per Dr. Jung, Mr. Sutton is a 70M with PMH HTN, HL, unvaccinated against COVID who presents to the hospital after 9 days of feeling ill. He notes initially that he felt fever, chills, nausea, poor appetite. This progressed over the last few days to cough and shortness of breath. He is not vaccinated for COVID. Because of his worsening shortness of breath he presented to the hospital. He denied chest pain, vomiting, abdominal pain, nausea, vomiting, or diarrhea. In the ED workup was done he was noted to be afebrile, hr in the 90s, O2 sat at 90, dropped to 89 when I stopped his oxygen. Labs notable for WBC 5.4, hgb 16.7, plts 153. Na 133, k 3.8, bun 24, creatinine 1.30. LDH 1142. Procal 0.15, COVID positive. Chest xray showed bilateral patchy infiltrates. CTA showed no PE. He was ordered for remdesivir, dexamethasone and admitted for further treatment. Discharge Providers Provider Date of admission: 06/25/21 16:23 Discharge Date: 06/27/21 Primary care physician: Isaiah Urban DO Consults: 06/26/21 13:33 Consult to Respiratory Therapy Evaluate & Treat Comment: home o2 eval Physician Instructions: Evaluate and treat Discharge provider: Patel Lal DO Summary Hospital Course Discharge Diagnosis: 1. Acute hypoxemic respiratory failure secondary to COVID pneumonia 2. Elevated creatinine, improved 3. Hypertension 4. Hypothyroidism Hospital Course: Mr. Sutton is a 70M with PMH HTN who presents with shortness of breath found to have hypoxemic respiratory failure due to COVID pneumonia. He was started on steroids and remdesivir therapy. His symptoms were stable, and at times he was off of supplemental oxygen with occasional desaturations. The patient was agreeable to discharge home, and he was discharged home on minimal oxygen. He was recommended to continue to monitor his pulse oximetry at home and advised to return to the emergency room should he have increasing oxygen requirements. No changes to his home medications are recommended on discharge. Time Spent with Patient Time spent: Greater than 30 minutes Exam Vital Signs (past 8 hours): - 06/27/21 06:20 06/27/21 08:55 Temperature 99.9 F H Pulse Rate 89 Respiratory Rate 16 Blood Pressure 161/79 H Pulse Oximetry 89 L Oxygen Delivery Method Nasal Cannula Oxygen Flow Rate 0 Narrative Exam Narrative: GEN: no acute distress HEENT: moist mucous membranes, PERRL NECK: trachea midline, no JVD CV: regular rate and rhythm, no murmurs PULM: poor air movement bilaterally ABD: soft, nontender, nondistended, no organomegaly, normal bowel sounds EXT: warm and well perfused, no edema NEURO: awake, alert, oriented, no focal deficits Objective Labs Result Diagrams: 06/26/21 06:20 06/26/21 06:20 [facility] Medical History Acute pain of right knee Chronic back pain (~1994) History of melanoma HTN (hypertension) (~1999) Hyperlipidemia, mixed Hypothyroidism (acquired) Kidney stones (~1997) Somatic dysfunction of lower extremity Vaccination hesitancy by patient Surgical History Anesthesia H/O hernia repair (~2005) Melanoma (~2018) Family History Father Cancer Hairy cell leukemia Grandfather Cancer Social History household members: spouse and children Smoking Status: Never smoker alcohol intake: current Discharge Plan Discharge Plan Patient Disposition: Home Provider Discharge Comment: You were admitted to the hospital with respiratory failure from COVID requiring some oxygen. This improved with steroid treatments and medications. At home, continue to use O2 only if saturations are <90% at home. Discharge orders & Medications Prescriptions: Continued amlodipine 10 mg tablet 10 mg PO DAILY Qty: 90 RF: 3 lisinopril 40 mg tablet 40 mg PO DAILY Qty: 90 RF: 0 Follow up/Referrals: Isaiah Urban DO [Primary Care Provider] - Discharge Data Primary Care Provider: Isaiah Urban Quality VTE Deep Vein Thrombosis/Pulmonary Embolism Present on Admission: No
[2021-06-27 15:31] VITALS: O2SAT 92
--- NOTE | 2021-06-27 18:52 | PC.NURSE ---
Pt A&OX3. VSS, afebrile although some low grade temps intermittently 99.2. Pt given tylenol this a.m. for aches with good effect. He is able to ambulate around room 88-89% on RA. Per RT placed on 2 L this shift 02 sats at 92%. RT evaluated and assessed patient for Home 02 with APRIA, he verbalizes understanding of oxygen at home and plan to return to ER if symptoms worsen. He states he does have a pulse oximeter at home and will assess. MD clears patient for discharge home. He receives portable tank and is escorted by RN to private vehicle to drive home, he states 3 mins away.
== END 2021-06-27 16:45 | disposition home or self-care (01) | DRG 177 ==
LOC: ED 16:22 → AC 16:23
PROVIDERS: Admitting Provider Internal Medicine; Emergency Provider Student in an Organized Health Care Education/Training Program; PCP Family Medicine; Referring Provider Student in an Organized Health Care Education/Training Program; Visit Provider Internal Medicine
DX: U07.1 COVID-19 (principal); J12.82 Pneumonia due to coronavirus disease 2019; J96.01 Acute respiratory failure with hypoxia; E03.9 Hypothyroidism, unspecified; I10 Essential (primary) hypertension; R94.4 Abnormal results of kidney function studies
CPT/HCPCS: 36415; 36600; 71045; 71275; 80048; 80053; 82728; 82805; 83605; 83615; 83880; 84145; 84484; 85007; 85025; 85379; 87040; 87635; 93005; 93010; 94618; 94760; 96365; 96366; 96375; 99284; 99285; C9803; J1100; J1650

== ENCOUNTER 2021-07-02 22:30 | Emergency (ER) | payer MEDICARE, SELFPAY ==
[2021-06-25 20:13] VITALS: BMI 25.7
[2021-07-02] VITALS (11 sets, daily range): BP systolic 118–189; BP diastolic 60–103; PULSE 88–105; RESP 20–27; TEMP 36.4; O2SAT 88–94; BMI 29.9
--- NOTE | 2021-07-02 23:04 | ED_ITS ---
HPI - Chest Pain General Chief Complaint: Chest Pain Stated Complaint: chest pain Time Seen by Provider: 07/02/21 23:02 Source: patient Mode of arrival: Ambulatory Limitations: no limitations History of Present Illness HPI narrative: This is a 70-year-old male who presents with chest that started 8:00 a.m. this evening about 3 hours ago. Patient states left substernal it does not radiate. He had a recent COVID diagnosis but was not having chest pain with those episodes. He still has some shortness of breath she has maybe a little bit worse this evening. He has been using home O2 intermittently. Typically in the low 90s. Had an episode of diaphoresis this evening. He has had some mild nausea but does not have any currently. No vomiting. No diarrhea constipation. He denies swelling in his extremities. Has a history of hypertension, denies any dyslipidemia. Does not know of any cardiac history. He does not take an aspirin or any thinners. He denies any major surgeries. No allergies to medi cations. No tobacco, alcohol or illicit. Related Data Previous Rx's Medication Instructions Recorded amlodipine 10 mg tablet 10 mg PO DAILY #90 tab 12/04/20 lisinopril 40 mg tablet 40 mg PO DAILY #90 tab 12/04/20 Allergies Allergy/AdvReac Type Severity Reaction Status Date / Time No Known Drug Allergies Allergy Verified 04/17/21 09:35 Review of Systems Review of Systems ROS Unobtainable: All systems reviewed & are unremarkable except as noted in HPI and below Patient History Medical History Acute pain of right knee Chronic back pain (~1994) History of melanoma HTN (hypertension) (~1999) Hyperlipidemia, mixed Hypothyroidism (acquired) Kidney stones (~1997) Somatic dysfunction of lower extremity Vaccination hesitancy by patient Surgical History Anesthesia H/O hernia repair (~2005) Melanoma (~2018) Family History Father Cancer Hairy cell leukemia Grandfather Cancer Social History household members: spouse and children Smoking Status: Never smoker alcohol intake: current Smoking Status: Never smoker alcohol intake frequency: a few times a month Substance Use Type: does not use Exam Narrative Exam Narrative: GENERAL: Alert and oriented x three, male in mild distress. HEENT: Head normocephalic, atraumatic, EOMI, pupils reactive, face symmetric, moist mucous membranes NECK: Supple, full range of motion CARDIOVASCULAR: Regular rate and rhythm without murmurs, rubs or gallops. RESPIRATORY: Breath sounds equal bilaterally, no wheezes rales or rhonchi. ABDOMEN: Soft, nontender. Normoactive bowel sounds all 4 quadrants. No guarding or rebound, rigidity, no mass : No CVA tenderness EXTREMITIES: Normal range of motion, no clubbing or edema. Neurovascularly intact NEUROLOGICAL: Cranial nerves II through XII grossly intact. Moving all extremities SKIN: Warm, dry, no petechiae, no rashes or lesions. Initial Vital Signs Initial Vital Signs: Vital Signs Temperature 97.5 F L 07/02/21 22:43 Pulse Rate 99 H 07/02/21 22:43 Respiratory Rate 21 07/02/21 22:43 Blood Pressure 155/96 H 07/02/21 22:43 Pulse Oximetry 93 07/02/21 22:43 Course Orders Ordered: ED Orders 07/02/21 22:46 EKG-12 Lead Stat 07/02/21 23:03 EKG-12 Lead Stat 07/02/21 23:05 Complete Blood Count AUTO DIFF Stat Comprehensive Metabolic Panel Stat D Dimer Stat Lipase Stat NT-proBNP (BNP-Adult 18+) Stat Partial Thromboplastin Time Stat Prothrombin Time INR Stat Troponin & CK Cardiac Panel Stat 07/02/21 23:10 COVID19 -Nasal swab/Pre-Proc Stat Discontinued Medications Aspirin (Aspirin 81 Mg Chew Tab) 324 mg PO NOW ONE Stop: 07/02/21 23:04 Last Admin: 07/02/21 23:08 Dose: 324 mg Documented by: DAMEON Heparin Sodium (Porcine) (Heparin 5,000 Unit/Ml Vial) 5,000 unit IV NOW ONE Stop: 07/02/21 23:22 Last Admin: 07/02/21 23:41 Dose: 5,000 unit Documented by: ROGER Sodium Chloride (Normal Saline 0.9%) 1,000 mls @ 150 mls/hr IV CONT DANA Last Admin: 07/02/21 23:08 Dose: 150 mls/hr Documented by: DAMEON Heparin Sodium/Dextrose (Heparin Drip) 25,000 unit in 500 mls @ 26.127 mls/hr IV CONT DANA; Protocol Last Admin: 07/02/21 23:47 Dose: 9.19 units/kg/hr, 20.009 mls/hr Documented by: ROGER Nitroglycerin (Nitroglycerin) 50 mg in 250 mls @ 1.5 mls/hr IV TITRATE DANA; Protocol Last Admin: 07/02/21 23:51 Dose: 5 mcg/min, 1.5 mls/hr Documented by: ROGER Nitroglycerin (Nitroglycerin 0.4 Mg Sl Tab) 0.4 mg SL [id number] PRN PRN Reason: Chest Pain Last Admin: 07/02/21 23:32 Dose: 0.4 mg Documented by: Admin: 07/02/21 23:20 Dose: 0.4 mg Documented by: Admin: 07/02/21 23:14 Dose: 0.4 mg Documented by: DAMEON Consultations Consultation #1: Dr. Trimble, at [facility]. Old EKG as well as today's or faxed to them. She will review with the sole filler as patient has recent COVID hospitalization with discharge on the and received dexamethasone and remdesivir. To see if this would alter the course of his treatment for STEMI. Consultation #2: Dr. Trimble, spoke with Cardiology plan for patient to be transferred stat. Vital Signs Vital signs: Vital Signs - 8 hr 07/02/21 23:25 07/02/21 23:30 07/02/21 23:32 Pulse Rate 97 H 97 H 89 Respiratory Rate 21 24 Blood Pressure 141/91 H 143/90 H 143/90 H Pulse Oximetry 07/02/21 23:35 07/02/21 23:45 07/02/21 23:51 Pulse Rate 97 H 98 H 88 Respiratory Rate 21 23 Blood Pressure 132/84 118/60 118/60 Pulse Oximetry 88 L 94 MDM - Chest Pain Lab Data Result diagrams: 07/02/21 23:05 07/02/21 23:05 Labs: Lab Results 07/02/21 07/02/21 07/02/21 Range/Units 23:05 23:05 23:05 WBC 12.0 H (4.5-11.0) X10^3/uL RBC 5.93 H (4.5-5.9) X10^6/uL Hgb 17.4 (13.5-17.5) g/dL Hct 50.6 (41-53) % MCV 85.4 (80-100) fL MCH 29.3 (26-34) PG MCHC 34.3 (30-36) % RDW 13.3 (11.6-14.8) % Plt Count 361 (150-400) X10^3/uL Neut % (Auto) 77.2 H (50-75) % Lymph % (Auto) 8.0 L (25-40) % [place] % (Auto) 12.5 (3-14) % Eos % (Auto) 2.1 (2-4) % Baso % (Auto) 0.2 (0-2) % Neut # (Auto) 9300 H (7821-3688) /uL Lymph # (Auto) 1000 L (4423-2181) /uL [place] # (Auto) 1500 H (0-900) /uL Eos # (Auto) 300 (0-450) /uL Baso # (Auto) 0 (0-100) /uL PT 14.0 H (10.1-12.7) SECONDS INR 1.2 (0.9-1.3) APTT 42 H (26.4-36.2) SECONDS D-Dimer (<230) ng/mL Sodium 137 (137-145) mmol/L Potassium 3.6 (3.4-5.1) mmol/L Chloride 100 (98-107) mmol/L Carbon Dioxide 32 (22-32) mmol/L BUN 18 (9-20) mg/dL Creatinine 1.39 H (0.66-1.25) mg/dL Estimated GFR 50.8 L (>60) mL/min BUN/Creatinine Ratio 12.9 (6-22) Glucose 144 H (80-110) mg/dL Calcium 9.8 (8.4-10.2) mg/dL Total Bilirubin 1.0 (0.2-1.3) mg/dL AST 93 H (17-59) IU/L ALT 40 (<50) IU/L Alkaline Phosphatase 63 (38-126) U/L Total Creatine Kinase 452 H (55-170) U/L CK-MB (CK-2) 39.60 H (<2.37) ng/mL CK-MB (CK-2) Rel Index 8.8 H* (1.5-5.0) % Troponin I 8.750 H* (0.01-0.034) ng/mL NT-Pro-B Natriuret Pep 1650 H (<125) pg/mL Total Protein 7.3 (6.3-8.2) g/dL Albumin 3.7 (3.5-5.0) g/dL Globulin 3.6 (1.7-4.1) g/dL Albumin/Globulin Ratio 1.0 (1.0-2.8) Lipase 69 (23-300) U/L SARS-CoV-2 (PCR) (Negative) 07/02/21 07/02/21 Range/Units 23:05 23:10 WBC (4.5-11.0) X10^3/uL RBC (4.5-5.9) X10^6/uL Hgb (13.5-17.5) g/dL Hct (41-53) % MCV (80-100) fL MCH (26-34) PG MCHC (30-36) % RDW (11.6-14.8) % Plt Count (150-400) X10^3/uL Neut % (Auto) (50-75) % Lymph % (Auto) (25-40) % [place] % (Auto) (3-14) % Eos % (Auto) (2-4) % Baso % (Auto) (0-2) % Neut # (Auto) (4698-9045) /uL Lymph # (Auto) (0813-1422) /uL [place] # (Auto) (0-900) /uL Eos # (Auto) (0-450) /uL Baso # (Auto) (0-100) /uL PT (10.1-12.7) SECONDS INR (0.9-1.3) APTT (26.4-36.2) SECONDS D-Dimer 1406 H (<230) ng/mL Sodium (137-145) mmol/L Potassium (3.4-5.1) mmol/L Chloride (98-107) mmol/L Carbon Dioxide (22-32) mmol/L BUN (9-20) mg/dL Creatinine (0.66-1.25) mg/dL Estimated GFR (>60) mL/min BUN/Creatinine Ratio (6-22) Glucose (80-110) mg/dL Calcium (8.4-10.2) mg/dL Total Bilirubin (0.2-1.3) mg/dL AST (17-59) IU/L ALT (<50) IU/L Alkaline Phosphatase (38-126) U/L Total Creatine Kinase (55-170) U/L CK-MB (CK-2) (<2.37) ng/mL CK-MB (CK-2) Rel Index (1.5-5.0) % Troponin I (0.01-0.034) ng/mL NT-Pro-B Natriuret Pep (<125) pg/mL Total Protein (6.3-8.2) g/dL Albumin (3.5-5.0) g/dL Globulin (1.7-4.1) g/dL Albumin/Globulin Ratio (1.0-2.8) Lipase (23-300) U/L SARS-CoV-2 (PCR) Negative (Negative) ECG Data Attestation: I personally reviewed and interpreted this ECG as follows: Prior ECG tracings: available for review Interpretation: Occasional PVCs. Patient has Q-waves in lead 3. He appears to have elevation in V3, 4 5 and 6. Patient has prior EKG from 06/25/2021 which shows same changes in V1-V2 to but do not appreciate in the lateral leads V3-V6. Patient 2nd EKG shows sinus tachycardia rate of 101 SC 152 QRS 82 and QTC 456. Much more clear elevation in V2 through the V6. [facility] Narrative Medical decision making narrative: This is a 70-year-old with recent COVID infection who was hospitalized and discharged 5 days ago. Patient has history of hypertension and developed chest pain which is new this evening. His EKG shows appears to be elevation in comparison to priors. EKG was repeated as there was some artifact and baseline motion and is clearly positive. Patient was started on heparin, aspirin and had improvement of his chest pain with sublingual nitro and was started on nitro drip. Spoke with [facility], Dr. Chamorro who accepts for transfer. Labs are currently pending. Critical Care Time Critical Care Time Critical Care Time: Yes Total Critical Care Time: 35 Attestation: The high probability of a clinically significant, sudden or life threatening deterioration of the [cardiac] system(s) required my full and direct attention, intervention and personal management. The aggregate critical care time was [] minutes. This time is in addition to time spent performing reported procedures but includes the following: [x] Data Review and interpretation [x] Patient assessment and monitoring of vital signs [x] Documentation [x] Medication orders and management Discharge Plan Departure Patient Disposition: [facility] Clinical Impression: ST elevation IA (STEMI) Prescriptions: No Action amlodipine 10 mg tablet 10 mg PO DAILY Qty: 90 3RF lisinopril 40 mg tablet 40 mg PO DAILY Qty: 90 0RF Referrals: Isaiah Urban DO [Primary Care Provider] -
[2021-07-02] MEDS: SODIUM CHLORIDE 0.9% 1,000 ML 150 ML IV (23:08)
[2021-07-02] MEDS: ASPIRIN 81 MG CHEW TAB 324 MG PO (23:08)
[2021-07-02] MEDS: NITROGLYCERIN 0.4 MG SL TAB SL ×3 (23:14→23:32)
[2021-07-02 23:29] LABS: Add Manual Diff / Slide Review NO; Basophils Absolute Auto 0 /uL (0-100); Basophils Percent Auto 0.2 % (0-2); Eosinophils Absolute Auto 300 /uL (0-450); Eosinophils Percent Auto 2.1 % (2-4); Hematocrit 50.6 % (41-53); Hemoglobin 17.4 g/dL (13.5-17.5); Lymphocytes Absolute Auto 1000 /uL (1100-4500); Mean Corpuscular HGB Conc 34.3 % (30-36); Mean Corpuscular Hemoglobin 29.3 PG (26-34); Mean Corpuscular Volume 85.4 fL (80-100); Monocytes Absolute Auto 1500 /uL (0-900); Monocytes Percent Auto 12.5 % (3-14); Neutrophils Absolute Auto 9300 /uL (1500-7000); Neutrophils Percent Auto 77.2 % (50-75); Platelet Count 361 X10^3/uL (150-400); Red Blood Cell Count 5.93 X10^6/uL (4.5-5.9); Red Cell Distribution Width 13.3 % (11.6-14.8)
[2021-07-02 23:32] LABS: Alanine Aminotransferase 40 IU/L (<50); Albumin 3.7 g/dL (3.5-5.0); Alkaline Phosphatase 63 U/L (38-126); Aspartate Aminotransferase 93 IU/L (17-59); BUN Creatinine Ratio 12.9 (6-22); Blood Urea Nitrogen 18 mg/dL (9-20); Calcium 9.8 mg/dL (8.4-10.2); Carbon Dioxide 32 mmol/L (22-32); Chloride 100 mmol/L (98-107); Estimated Glomerular Filt Rate 50.8 mL/min (>60); Globulin 3.6 g/dL (1.7-4.1); Glucose 144 mg/dL (80-110); HEMOLYSIS < 15 (0-50); INR 1.2 (0.9-1.3); Lipase 69 U/L (23-300); Potassium 3.6 mmol/L (3.4-5.1); Sodium 137 mmol/L (137-145); Total Protein 7.3 g/dL (6.3-8.2)
[2021-07-02 23:35] LABS: PTT Partial Thromboplastin Tim 42 SECONDS (26.4-36.2)
[2021-07-02 23:38] LABS: COVID19 -Nasal RAPID Negative (Negative)
[2021-07-02] MEDS: HEPARIN 5,000 UNIT/ML VIAL 5000 UNIT IV (23:41)
[2021-07-02 23:43] LABS: NT-proBNP (BNP-Adult 18+) 1650 pg/mL (<125)
[2021-07-02] MEDS: HEPARIN DRIP 25,000 UNIT/500 ML IV.SOLN 20.009 UNIT IV (23:47)
[2021-07-02 23:50] LABS: D Dimer 1406 ng/mL (<230)
[2021-07-02] MEDS: NITROGLYCERIN 50 MG/250 ML INFUS..BTL IV (23:51)
--- NOTE | 2021-07-02 23:54 | PC.NURSE ---
Report given to [facility] and to [facility] dept.
--- NOTE | 2021-07-02 23:55 | PC.NURSE ---
currently is covid positive
[2021-07-03 00:13] LABS: Creatine Kinase 452 U/L (55-170)
[2021-07-03 00:16] LABS: CKMB % Relative Index 8.8 % (1.5-5.0)
--- NOTE | 2021-07-10 01:17 | PC.NURSE ---
Heparin started @ 23:47 was stopped at 0005 upon transfer- continued with EMT's Nitroglycerin started @ 23:51was stopped at 0005 upon transfer- continued with EMT's
== END 2021-07-03 00:05 | disposition short-term general hospital (02) ==
PROVIDERS: Emergency Provider Emergency Medicine; PCP Family Medicine
DX: I21.3 ST elevation (STEMI) myocardial infarction of unspecified site (principal)
CPT/HCPCS: 36415; 80053; 82550; 82553; 83690; 83880; 84484; 85025; 85379; 85610; 85730; 87635; 93005; 96361; 96365; 96375; 99285; 99291; C9803; J1644

== ENCOUNTER → 2021-11-08 09:13 | Outpatient (CLI) | payer MEDICARE, SELFPAY ==
[2021-06-25 20:13] VITALS: BMI 25.7
[2021-11-08 10:22] LABS: BUN Creatinine Ratio 15.4 (6-22); Blood Urea Nitrogen 24 mg/dL (9-20); Calcium 9.9 mg/dL (8.4-10.2); Carbon Dioxide 27 mmol/L (22-32); Chloride 106 mmol/L (98-107); Estimated Glomerular Filt Rate 44.3 mL/min (>60); Glucose 99 mg/dL (80-110); HEMOLYSIS < 15 (0-50); Potassium 4.2 mmol/L (3.4-5.1); Sodium 141 mmol/L (137-145)
== END ==
PROVIDERS: PCP Internal Medicine; Referring Provider Internal Medicine Cardiovascular Disease; Visit Provider Internal Medicine Cardiovascular Disease
DX: I25.119 Atherosclerotic heart disease of native coronary artery with unspecified angina pectoris (principal)
CPT/HCPCS: 36415; 80048

== ENCOUNTER 2022-05-10 16:55 | Emergency (ER) | payer MEDICARE, SELFPAY ==
[2021-06-25 20:13] VITALS: BMI 25.7
[2022-05-10 17:40] VITALS: BP 164/87; PULSE 64; RESP 20; TEMP 36.2; O2SAT 97; BMI 30.4
--- NOTE | 2022-05-10 23:44 | PC.NURSE ---
multiple attempts to call patient. No answer in waiting room.
== END 2022-05-10 22:37 | disposition left against medical advice (07) ==
PROVIDERS: Emergency Provider Emergency Medicine; PCP Internal Medicine
CPT/HCPCS: 99281

== ENCOUNTER 2022-07-07 08:30 | Outpatient (RCR) | payer MEDICARE, SELFPAY ==
[2021-06-25 20:13] VITALS: BMI 25.7
== END 2022-07-07 10:30 ==
LOC: CAR 08:30
PROVIDERS: PCP Internal Medicine; Referring Provider Internal Medicine; Visit Provider Internal Medicine
DX: Z95.5 Presence of coronary angioplasty implant and graft (principal)
CPT/HCPCS: 93798

== ENCOUNTER → 2025-01-03 12:04 | Outpatient (CLI) | payer MEDICARE, SELFPAY ==
[2021-06-25 20:13] VITALS: BMI 25.7
--- NOTE | 2025-01-03 12:09 | DI.RAD.S_ITS ---
PROCEDURE: XR CHEST 2V INDICATIONS: CHEST XRAY TECHNIQUE: 2 views of the chest were acquired. COMPARISON: [facility], , XR CHEST 1V, 06/25/2021, 13:37. FINDINGS: Heart, mediastinum and pulmonary vascular: Heart is normal in size and configuration. Mediastinum is unremarkable. Pulmonary vascular is normal. Lungs: Clear Pleural spaces: Normal-no effusions or pneumothorax. Bones and soft tissues: Normal IMPRESSION: Normal chest. Dictated by: Hernán Cabrera M.D. on 01/04/2025 at 10:00 Approved by: Hernán Cabrera M.D. on 01/04/2025 at 10:02
== END ==
PROVIDERS: PCP Family Medicine; Referring Provider Family Medicine; Visit Provider Family Medicine
DX: R06.09 Other forms of dyspnea (principal)
CPT/HCPCS: 71046

== ENCOUNTER → 2025-01-16 08:27 | Outpatient (CLI) | payer MEDICARE, SELFPAY ==
[2021-06-25 20:13] VITALS: BMI 25.7
--- NOTE | 2025-01-16 08:29 | DI.US.S_ITS ---
PROCEDURE: US RENAL COMPLETE INDICATIONS: DIAN, acute renal insufficiency, acute kidney injury. TECHNIQUE: Real-time scanning was performed of the kidneys and bladder, with image documentation. COMPARISON: None. FINDINGS: Kidneys: [id number] diffuse increased renal cortical echogenicity bilaterally commonly medical renal disease. Kidneys are normal in size. Right kidney measures 11.7 cm long; left kidney measures 11.6 cm long. Right renal cortical thickness is 1.9 cm; left renal cortical thickness is 1.7 cm. No hydronephrosis or nephrolithiasis. No suspicious solid mass lesions. Bladder: Bladder is nondistended. Prevoid and postvoid volumes not delineated. Miscellaneous: No free pelvic fluid. IMPRESSION: [id number] diffuse increased renal cortical echogenicity bilaterally commonly medical renal disease. No hydronephrosis. Dictated by: Fabricio Kennedy M.D. on 01/16/2025 at 10:01 Approved by: Fabricio Kennedy M.D. on 01/16/2025 at 10:04
== END ==
PROVIDERS: PCP Family Medicine; Referring Provider Family Medicine; Visit Provider Family Medicine
DX: R97.20 Elevated prostate specific antigen [PSA] (principal); N40.1 Benign prostatic hyperplasia with lower urinary tract symptoms; R35.1 Nocturia; N18.32 Chronic kidney disease, stage 3b
CPT/HCPCS: 76770

== ENCOUNTER → 2025-02-28 08:16 | Outpatient (CLI) | payer MEDICARE, SELFPAY ==
[2021-06-25 20:13] VITALS: BMI 25.7
--- NOTE | 2025-02-28 | DI.RAD.S_ITS ---
PROCEDURE: XR ABDOMEN MIN 2V INDICATIONS: Unspecified abdominal pain TECHNIQUE: 2 views of the abdomen were acquired. COMPARISON: None. FINDINGS: Stool gas pattern: Normal-no evidence of ileus or obstruction. No free intraperitoneal or extraperitoneal air. No gross evidence of ascites Soft tissues: No abnormal calcifications. No soft tissue masses. Organs: No gross evidence for organomegaly. IMPRESSION: Normal abdomen Dictated by: Hernán Cabrera M.D. on 02/28/2025 at 11:23 Approved by: Hernán Cabrera M.D. on 02/28/2025 at 11:24
== END ==
PROVIDERS: PCP Family Medicine; Referring Provider Family Medicine; Visit Provider Family Medicine
DX: R10.9 Unspecified abdominal pain (principal)
CPT/HCPCS: 74019

== ENCOUNTER → 2025-03-03 08:05 | Outpatient (CLI) | payer MEDICARE, SELFPAY ==
[2021-06-25 20:13] VITALS: BMI 25.7
--- NOTE | 2025-03-03 08:07 | DI.CT.S_ITS ---
PROCEDURE: CT KIDNEY URETER BLADDER (KUB) INDICATIONS: Flank Pain TECHNIQUE: CT of the abdomen and pelvis was obtained without intravenous contrast. Coronal and sagittal reformats were performed. For radiation dose reduction, the following was used: automated exposure control, adjustment of mA and/or kV according to patient size. COMPARISON: None. FINDINGS: Image quality: Diagnostic. Lower Chest: No significant findings. ABDOMEN: Liver: No contour-deforming mass. Gallbladder: No radiopaque gallstones or wall thickening. Biliary ducts: No biliary dilation. Pancreas: No ductal dilation. Spleen: Size is within normal limits. Adrenal Glands: No adrenal nodules. Kidneys and Ureters: No hydronephrosis. No contour-deforming mass. Stomach and Bowel: Normal colonic caliber, without significant wall thickening. The appendix is normal Peritoneum: No abnormal intraperitoneal fluid. No free air. Ventral Wall: No significant hernia. Abdominal Nodes: No retroperitoneal or mesenteric adenopathy by size criteria. Vessels: Aorta and inferior vena cava are normal in size. PELVIS: Pelvic Organs: Unremarkable. Bladder: Unremarkable. Pelvic Nodes: No enlarged lymph nodes. Miscellaneous: No inguinal hernias are seen. Bones: No aggressive osseous abnormality. IMPRESSION: No acute intra-abdominal abnormality. Dictated by: Raul Fuentes M.D. on 03/04/2025 at 18:51 Approved by: Raul Fuentes M.D. on 03/04/2025 at 18:56
== END ==
LOC: CT 08:06
PROVIDERS: PCP Family Medicine; Referring Provider Family Medicine; Visit Provider Family Medicine
DX: R10.9 Unspecified abdominal pain (principal)
CPT/HCPCS: 74176